=== PATIENT | male | born 1940 | race Caucasian/White ===

== ENCOUNTER 2016-05-12 09:43 | Emergency (ER) | payer MEDICARE, BC ==
[2013-08-28 06:58] VITALS: BMI 29.7
[~2016-05-12 09:43] MED LIST: ASPIRIN325 MG PO; IBUPROFEN800 MG PO; LIPITOR20 MG PO; OSTEO BI-FLEX1 EAC1 PO; PLAVIX75 MG PO; PRINIVIL10 MG PO; ZYRTEC10 MG PO
[2016-05-12 10:38] LABS: BASOPHILS 0.5 % (0.0-2.0); EOSINOPHILS 2.5 % (0-7); HEMATOCRIT 48.7 % (42.0-54.0); HEMOGLOBIN 16.1 g/dL (13.5-17.5); IMMATURE GRANULOCYTES 0.2 % (0-5); LYMPHOCYTES 18.4 % (15-50); MCH 30.8 pg (26.0-34.0); MCHC 33.1 g/dL (31.0-37.0); MCV 93.3 fL (80.0-100.0); MEAN PLATELET VOLUME 10.4 fL (7.4-10.4); MONOCYTES 7.6 % (2-11); NEUTROPHILS 70.8 % (40-80); PLATELET COUNT 214 10x3/uL (130-400); RBC 5.22 10x6/uL (4.20-6.10); RDW 13.1 % (11.5-14.5); WBC 6.4 10x3/uL (4.8-10.8)
[2016-05-12 10:57] LABS: ALBUMIN 3.6 g/dL (3.4-5.0); ALKALINE PHOSPHATASE 59 U/L (46-116); ALT (SGPT) 31 U/L (10-68); CALC OSMOLALITY 284 mosm/kg (275-300); CALCIUM 8.7 mg/dL (8.5-10.1); CARBON DIOXIDE 29.6 mmol/L (21.0-32.0); CHLORIDE - SERUM 104 mmol/L (98-107); GLUCOSE 128 mg/dL (74-106); POTASSIUM - SERUM 4.1 mmol/L (3.5-5.1); PROTEIN - SERUM 6.5 g/dL (6.4-8.2); SODIUM 141 mmol/L (136-145); UREA NITROGEN 18 mg/dL (7-18); eGFR NON AFRICAN AMERICAN 78 mL/min (90-120)
[2016-05-12 11:12] LABS: CKMB 0.5 U/L (0.0-3.6); CREATINE KINASE 41 UL (21-232); TROPONIN-I < 0.017 ng/mL (0.000-0.060)
== END 2016-05-12 12:12 | disposition home or self-care (01) ==
LOC: D.ER 09:43
PROVIDERS: Emergency Medicine; Nurse Practitioner Acute Care
DX: R55 Syncope and collapse (principal); I10 Essential (primary) hypertension; E78.5 Hyperlipidemia, unspecified; Z95.0 Presence of cardiac pacemaker

== ENCOUNTER 2017-03-18 16:17 | Emergency (ER) | payer MEDICARE, BC ==
[2013-08-28 06:58] VITALS: BMI 29.7
[2017-03-18 17:35] LABS: BASOPHILS 0.5 % (0-2); EOSINOPHILS 2.3 % (0-7); HEMATOCRIT 46.5 % (42.0-54.0); IMMATURE GRANULOCYTES 0.4 % (0-5); LYMPHOCYTES 17.7 % (15-50); MCH 30.9 pg (26.0-34.0); MCHC 34.4 g/dL (31.0-37.0); MCV 89.8 fL (80.0-100.0); MONOCYTES 9.5 % (2-11); NEUTROPHILS 69.6 % (40-80); PLATELET COUNT 229 10x3/uL (130-400); RBC 5.18 10x6/uL (4.20-6.10); RDW 13.8 % (11.5-14.5); WBC 7.4 10x3/uL (4.8-10.8)
[2017-03-18 18:05] LABS: ALBUMIN 3.7 g/dL (3.4-5.0); ALKALINE PHOSPHATASE 64 U/L (46-116); ALT (SGPT) 33 U/L (10-68); BILIRUBIN - TOTAL 0.58 mg/dL (0.2-1.3); CALC OSMOLALITY 286 mosm/kg (275-300); CALCIUM 9.1 mg/dL (8.5-10.1); CARBON DIOXIDE 29.4 mmol/L (21.0-32.0); CHLORIDE - SERUM 104 mmol/L (98-107); GLUCOSE 112 mg/dL (74-106); POTASSIUM - SERUM 3.8 mmol/L (3.5-5.1); PROTEIN - SERUM 6.8 g/dL (6.4-8.2); SODIUM 142 mmol/L (136-145); TROPONIN-I < 0.017 ng/mL (0.000-0.060); UREA NITROGEN 21 mg/dL (7-18); eGFR NON AFRICAN AMERICAN 78 mL/min (90-120)
[2017-04-04] MEDS ORDERED: BAYER CHEWABLE81 MG PO (09:28)
[2017-04-04] MEDS ORDERED: PLAVIX75 MG PO (09:28)
[2017-04-04] MEDS ORDERED: DIOVAN HCT 160/1 TAB PO (09:29)
[2017-04-04] MEDS ORDERED: NIFEDIPINE ER30 MG PO (09:30)
[2017-04-04] MEDS ORDERED: MULTIPLE VITAMI1 TA1 PO (09:30)
[2017-04-04 09:46] VITALS: BMI 29.7
== END 2017-03-18 20:16 | disposition home or self-care (01) ==
LOC: D.ER 16:17
PROVIDERS: Physician Assistant
DX: R42 Dizziness and giddiness (principal); I10 Essential (primary) hypertension; Z86.79 Personal history of other diseases of the circulatory system; Z95.0 Presence of cardiac pacemaker

== ENCOUNTER → 2017-04-04 08:45 | Outpatient (CLI) | payer MEDICARE, BC ==
[~2017-04-04] VITALS: Ht 185.4 cm; Wt 102.3 kg
--- NOTE | ~2017-04-04 | HEMODYNAMI ---
PATIENT:MALLORY YOUSIF MEDICAL RECORD: [id number] : 44 LOCATION:DNEVAEH ADMISSION DATE: 04/04/17 Generatedon:04/04/201711:47 Patient name: MALLORY YOUSIF Patient #: [id number] SSN: : 1940 Date of study: 04/04/2017 Page: Of Hemodynamic Procedure Report Patient Data Patient Demographics Procedure consent was obtained First Name: MALLORY Gender: Male Last Name: BENJA : 1940 Middle Initial: ANTONY Age: 76 year(s) Patient #: [id number] Race: Unknown Additional ID: [id number] Contact details Address: [address] [place] [address] State: [place] City: [place] Zip code: [address] Past Medical History Allergies: No known allergies Admission Admission Data Admission Date: 04/04/2017 Admission Time: 8:45 Height (in.): 26 BSA: 1.09 (m2) Height (cm.): 66.04 BMI: 243.37 (kg/m2) Weight (lbs.): 234 Weight (kg.): 106.14 Lab Results Lab Result Date: 04/04/2017 Lab Result Time: 0:00 Biochemistry Name Units Result Min Max BUN mg/dl 15 --(--*-)-- 7 18 Creatinine mg/dl 1 --(--*-)-- 0.6 1.3 CBC Name Units Result Min Max Hemoglobin g/dl 16.8 --(---*)-- 13.5 17.5 Procedure Procedure Types Cath Procedure Diagnostic Procedure LHC LHC w/Coronaries FFR/IVUS Intra-Coronary IVUS Initial PCI Procedure Coronary Stent Miscellaneous Procedures Moderate Sedation up to 15 minutes Procedure Description Procedure Date Procedure Date: 04/04/2017 Procedure Start Time: 11:29 Procedure End Time: 11:47 Procedure Staff Name Function Phoenix Allen MD Performing Physician Myah Juárez RT Monitor Sujey Vyas RT Scrub Kenna Nava RN Nurse Procedure Data Cath Procedure Fluoroscopy Diagnostic fluoroscopy Total fluoroscopy Time: 4.8 time: 4.8 min min Diagnostic fluoroscopy Total fluoroscopy dose: 741 dose: 741 mGy mGy Contrast Material Contrast Material Type Amount (ml) Isovue 300 111 Entry Location Entry Primary Successful Side Size Upsize Upsize Entry Closure Chawla ccessful Closure Location (Fr) 1 (Fr) 2 (Fr) Remarks Device Remarks Radial Right 6 Fr Mechanical artery Short Compression Estimated blood loss: 10 ml Diagnostic catheters Device Type Used For End Catheter Placement DIAGNOSTIC [place] 110cm 5 Procedure Fr catheter ([id number]) Procedure Complications No complications Procedure Medications Medication Administration Route Dosage Oxygen NC 2 l/min Lidocaine 2% added to field 20 Heparin Flush Bag added to field 2 bags (1000units/500ml NS) 0.9% NaCl I.V. 100 ml/hr Versed I.V. 1 mg Fentanyl I.V. 50 mcg Radial Cocktail I.A. 1 syringe (Verapomil 2mg/Nitro 400mcg/Heparin 1500units) Versed I.V. 1 mg Fentanyl I.V. 50 mcg Versed I.V. 1 mg Fentanyl I.V. 50 mcg Heparin Bolus I.V. 4000 units Hemodynamics Rest BSA: 1.09 (m2) HGB: 16.8 (g/dl) O2 Consumption: Estimated: 130.62 (ml/min) O2 Co nsumption indexed: Estimated:119.83 (ml/min/m) Heart Rate: 83 (bpm) Snapshots Pre Cath Intra NCS Post Cath Vital Signs Time Heart Resp SPO2 etCO2 NIBP (mmHg) Rhythm Pain Sedation Rate (ipm) (%) (mmHg) Status Level (bpm) 11:04:23 84 18 97 31.2 118/79(105) NSR 0 (11) 10(A) , No pain 11:09:02 81 15 96 0 127/77(98) NSR 0 (11) 10(A) , No pain 11:13:40 80 16 94 25.1 112/72(89) NSR 0 (11) 10(A) , No pain 11:18:19 79 16 95 30.5 111/73(89) NSR 0 (11) 10(A) , No pain 11:22:55 78 15 94 33.5 114/69(89) NSR 0 (11) 10(A) , No pain 11:27:32 79 15 95 9.1 114/75(92) NSR 0 (11) 9(A) , No pain 11:32:10 79 15 93 30.4 98/53(73) NSR 0 (11) 9(A) , No pain 11:36:47 75 13 94 12.1 110/62(82) NSR 0 (11) 9(A) , No pain 11:41:26 76 14 94 33.4 113/63(92) NSR 0 (11) 10(A) , No pain 11:46:04 75 12 94 34.2 105/60(80) NSR 0 (11) 10(A) , No pain Medications Time Medication Route Dose Verified Delivered Reason Note s Effectiveness by by 11:08:10 Oxygen NC 2 l/min Phoenix Buffie used for Tiffany Nava RN procedure 11:08:17 Lidocaine 2% added 20ml Phoenix Phoenix for local to vial Tiffany Allen MD anesthetic field 11:08:23 Heparin Flush added 2 bags Phoenix Phoenix used for Bag to Tiffany Allen MD procedure (1000units/500ml field NS) 11:08:48 0.9% NaCl I.V. 100 Phoenix Buffie Per physician ml/hr Tiffany Nava RN 11:23:39 Versed I.V. 1 mg Phoenix Buffie for sedation Tiffany Nava RN 11:23:48 Fentanyl I.V. 50 mcg Phoenix Buffie for sedation Tiffany Nava RN 11:30:26 Radial Cocktail I.A. 1 Phoenix Phoenix for (Verapomil syringe Tiffany Allen MD vasodilation 2mg/Nitro 400mcg/Heparin 1500units) 11:30:52 Versed I.V. 1 mg Phoenix Buffie for sedation Tiffany Nava RN 11:30:58 Fentanyl I.V. 50 mcg Phoenix Buffie for sedation Tiffany Nava RN 11:37:41 Versed I.V. 1 mg Phoenix Buffie for sedation Tiffany Nava RN 11:37:45 Fentanyl I.V. 50 mcg Phoenix Buffie for sedation Tiffany Nava RN 11:38:37 Heparin Bolus I.V. 4000 Phoenix Buffie for veri fied units Tiffany Nava RN anticoagulation with dr allen Procedure Log Time Note 10:46:01 Kenna Nava RN sent for patient. Start room use. 10:46:02 Time tracking: Regular hours 10:46:06 Plan of Care:Hemodynamics will remain stable., Cardiac rhythm will remain stable., Comfort level will be maintained., Respiratory function will remain adequate., Patient/ family verbilizes understanding of procedure., Procedure tolerated without complication., Recovers from procedure without complications.. 10:47:20 Signed procedure consent form obtained from patient. 10:47:30 H&P Date Dictated: 03/21/2017 Within 30 days and on chart., H&P Addendum completed by physician on day of procedure. (MUST COMPLETE FOR ALL OUTPATIENTS). 10:47:38 Patient Height : 26 inches 10:47:45 Patient Weight : 234 lbs 10:47:58 Patient allergic to No known allergies 10:49:18 Lab Result : BUN 15 mg/dl 10:49:18 Lab Result : Creatinine 1 mg/dl 10:49:18 Lab Result : Hemoglobin 16.8 g/dl 10:53:15 Patient received from Pre/Post Procedure Room to [facility] 1 Alert and oriented. Tansferred to table in Supine position. 10:53:16 Warm blankets applied, and rogelio hugger turned on for patient comfort. 10:53:17 Correct patient and procedure confirmed by team. 10:53:18 ECG and BP/O2 sat monitors applied to patient. 11:03:35 Vital chart was started 11:03:36 Baseline sample Acquired. 11:03:44 Rhythm: sinus rhythm 11:03:45 Full Disclosure recording started 11:03:46 Pre-procedure instructions explained to patient. 11:03:47 Pre-op teaching completed and patient verbalized understanding. 11:03:52 Family in patients room. 11:04:00 Is the patient allergic to Iodine/contrast media? No. 11:04:01 Is patient on blood thinner?Yes 11:04:04 ACC The patient was administered the following blood thiners within the last 24 hours: ACCPlavix 11:04:08 Patient diabetic? No. 11:04:12 Previous problem with sedation/anesthesia? No ? 11:04:12 Snore? Yes 11:04:13 Sleep apnea? No 11:04:15 Deviated septum? No 11:04:16 Opens mouth fully? Yes 11:04:17 Sticks out tongue? Yes 11:04:19 Airway obstruction? No ? 11:04:25 Dentures? No ? 11:05:22 Modified Jose's test Ulnar < 7 seconds 11:05:25 Patient pain scale 0/10 ?. 11:06:19 IV patent on arrival in left forearm with 0.9% NaCl at [facility]. 11:06:22 Lab results completed and on chart. 11:06:25 Right Radial & Right Groin area was prepped with chlora-prep and draped in sterile fashion 11:06:26 Alarms reviewed by R. N. 11:06:27 Sharps counted by scrub and verified by R.N. 11:07:09 Use device set Radial Dx or PCI 11:07:11 ACIST Syringe (99274) opened to sterile field. 11:07:11 Medline Cath Pack ([id number]) opened to sterile field. 11:07:13 ACIST Manifold (39389) opened to sterile field. 11:07:13 ACIST Hand Control (89825) opened to sterile field. 11:07:14 Tegaderm 4 x 4 (1626W) opened to sterile field. 11:07:16 Bag Decanter (2002S) opened to sterile field. 11:07:17 SHEATH 6FR Slender ([id number]) opened to sterile field. 11:07:17 DIAGNOSTIC WIRE .035 260cm J wire (908310) opened to sterile field. 11:07:18 MBrace Wrist Support ([id number]) opened to sterile field. 11:08:10 Oxygen 2 l/min NC was administered by Kenna Nava RN; used for procedure; 11:08:17 Lidocaine 2% 20ml vial added to field was administered by Phoenix Allen MD; for local anesthetic; 11:08:23 Heparin Flush Bag (1000units/500ml NS) 2 bags added to field was administered by Phoenix Allen MD; used for procedure; 11:08:48 0.9% NaCl 100 ml/hr I.V. was administered by Kenna Nava RN; Per physician; 11:11:19 Zero performed for pressure channel P1 11:22:18 --------ALL STOP TIME OUT------ 11::18 Final Timeout: patient, procedure, and site verified with staff and physician. All members of the team are in agreement. 11:22:20 Right Radial & Right Groin site verified by team. 11::23 Physical assessment completed. ASA score P 2 - A patient with mild systemic disease as per Phoenix Allen MD. 11::26 Sedation plan: IV Moderate Sedation Medication:Versed, Fentanyl 11:23:39 Versed 1 mg I.V. was administered by Kenna Nava RN; for sedation; 11::48 Fentanyl 50 mcg I.V. was administered by Kenna Nava RN; for sedation; 11:29:19 Procedure started. 11:29:28 Local anesthetic to right radial artery with Lidocaine 2% by Phoenix Allen MD.INITIAL ACCESS ONLY 11:30:04 A 6 Fr Short sheath was inserted into the Right Radial artery 11:30:14 A DIAGNOSTIC [place] 110cm 5 Fr catheter (266329) was advanced over the wire and used for Procedure. 11:30:26 Radial Cocktail (Verapomil 2mg/Nitro 400mcg/Heparin 1500units) 1 syringe I.A. was administered by Phoenix Allen MD; for vasodilation; 11:30:52 Versed 1 mg I.V. was administered by Kenna Nava RN; for sedation; 11:30:58 Fentanyl 50 mcg I.V. was administered by Kenna Nava RN; for sedation; 11:32:07 LV gram done using RICKS 11:32:11 Injector settings: Ml/sec: 7, Volume: 15, 11:32:49 EF : 60 % 11:33:06 LCA angiography performed. 11:33:52 INFLATOR Merit BasixCompak (QI0886) opened to sterile field. 11:34:10 RCA angiography performed. 11:34:15 Catheter removed. 11:34:21 Mari[place] Eagleye IVUS Catheter (50412P) opened to sterile field. 11:34:31 CHOICE PT Extra Support 182cm wire ([id number]) opened to sterile field. 11:35:14 GUIDE 6FR XBLAD 3.5 catheter ([id number]) opened to sterile field. 11:35:28 6 Fr XBLAD 3.5 guide catheter was inserted over the wire 11:35:34 CHOICE PT wire advanced. 11:36:13 Wire advanced across lesion. 11:36:37 IVUS catheter advanced over wire. 11:37:41 Versed 1 mg I.V. was administered by Kenna Nava RN; for sedation; 11:37:45 Fentanyl 50 mcg I.V. was administered by Kenna Nava RN; for sedation; 11:38:19 IVUS pass to LAD lesion performed. 11:38:20 IVUS catheter removed over wire. 11:38:37 Heparin Bolus 4000 units I.V. was administered by Kenna Nava RN; for anticoagulation; verified with dr allen 11:40:19 Inflation Number: 1 A INTEGRITY RX 3.0 x 15 stent ([id number]) was prepped and advanced across the Mid LAD. The stent was deployed at 15 FARHANA for 0:10 (min:sec). 11:40:50 Stent catheter was removed intact over wire. 11:40:51 Wire removed. 11:40:53 Guide catheter removed. 11:40:58 TR BAND Large ([id number]) opened to sterile field. 11:41:36 Sheath removed intact; hemostasis achieved with Mechanical Compression to the Right Radial artery. 11:41:38 Procedure ended.(Physican Out) 11:42:11 Fluoroscopy time 04.80 minutes. 11:42:15 Flurop Dose total: 741 11:42:15 Fluoroscopy dose: 741 mGy 11:42:18 Contrast amount:Isovue 300 111ml. 11:42:20 Sharps counted by scrub and verified by R.N. 11:42:22 TR band inflated with 10cc of air. 11:42:59 Post-procedure physical assessment completed. ASA score P 2 - A patient with mild systemic disease as per Phoenix Allen MD. 11:43:01 Post procedure rhythm: unchanged. 11:43:03 Estimated blood loss: 10 ml 11:43:29 Post procedure instruction explained to patient.Patient verbalizes understanding. 11:43:29 Patient needs reinforcement of post procedure teaching. 11:43:39 Procedure type changed to Cath procedure, Diagnostic procedure, LHC, C w/Coronaries, FFR/IVUS, Intra-Coronary IVUS Initial, PCI procedure, Coronary Stent, Miscellaneous Procedures, Moderate Sedation up to 15 minutes 11:44:44 Procedure and supply charges have been captured, reviewed, submitted and are correct. 11:44:47 Procedure Complication : No complications 11:46:46 Vital chart was stopped 11:46:46 See physician's report for complete and final results. 11:46:50 Report given to Pre/Post Procedure Room. 11:46:58 Patient transfered to Pre/Post Procedure Room with Bed. 11:47:04 Procedure ended. 11:47:04 Full Disclosure recording stopped 11:47:21 End room use (Document Last) Intervention Summary Intervention Notes Time ActionType Lesion and Equipment Action# Pressure Duration Attributes Used 11:40:19 Place stent Mid LAD INTEGRITY RX 1 15 00:10 3.0 x 15 stent ([id number]) Device Usage Item Name Manufacture Quantity Catalog Number Hospital Part Current Mini mal Lot# / Charge Number Stock Stock Serial# Code ACIST Acist 1 15154 102794 569203 [id number] 20 Syringe Medical (21321) Systems Inc Medline Cath Cardinal 1 [id number] 662297 03161 464965 5 Pack Health ([id number]) ACIST Acist 1 40638 730470 085152 357519 5 Manifold Medical (79748) Systems Inc ACIST Hand Acist 1 93767 949633 815271 451881 5 Control Medical (73421) Systems Inc Tegaderm 4 x 3M 1 1626W 173697 672554 495746 5 4 (1626W) Bag Decanter Microtek 1 2002S 464018 57672 241450 5 (2001S) Medical Inc. SHEATH 6FR Terumo 1 [id number] 454305 743959 273540 40 Slender ([id number]) DIAGNOSTIC [place] 1 487229 553562 926312 945618 30 WIRE .035 260cm J wire (192421) MBrace Wrist Advanced 1 140-0250-00 559524 01912 437445 5 Support Vascular ([id number]) Dynamics DIAGNOSTIC Terumo 1 40-5013 079892 488875 093787 5 [place] 110cm 5 Fr catheter (016808) INFLATOR Merit 1 [id number] 312042 498831 840413 15 [facility] Medical BasixCompak (EU1824) Marietta [place] 1 06549O 617234 372233 683620 8 [place] Eagleye IVUS Catheter (45907F) CHOICE PT [place] 1 [id number] 710439 322390 103116 5 Extra Scientific Support 182cm wire ([id number]) GUIDE 6FR Cardinal 1 [id number] 470709 708303 027513 10 XBLAD 3.5 Health catheter (99264164) INTEGRITY RX Medtronic 1 [id number] 858889 748055 553783 5 [id number] 3.0 x 15 stent ([id number]) TR BAND Terumo 1 [id number] 867432 350669 655930 40 Large (IVB00IYS) Signature Audit [place] Stage Time Signature Unsigned Intra-Procedure 04/04/2017 Myah Juárez 11:47:34 AM RT(R) Signatures Monitor : Myah Juárez Signature : RT Date : Time : [address] [address]
--- NOTE | ~2017-04-04 | OP ---
PATIENT NAME: MALLORY YOUSIF MEDICAL RECORD: [id number] :44 LOCATION:D.CAT ADMISSION DATE: SURGEON: KENNEY SIM MD DATE OF OPERATION: 04/04/2017 PROCEDURES: 1. PTCA stent LAD. 2. Intravascular ultrasound of the LAD. 3. Left heart catheterization. 4. Selective coronary angiography. 5. Left ventriculogram. INDICATION: Angina and coronary artery disease. PROCEDURE IN DETAIL: After informed consent was obtained and after detailed explanation of risks, benefits as well as alternative therapies, the patient elected to proceed with angiogram and angioplasty. The right radial area was prepped and draped in normal sterile fashion. The right radial artery was cannulated via modified Seldinger technique with placement of a 6-Welsh sheath. All catheters exchanged through this sheath. FINDINGS: Left ventriculogram was performed in standard 30-degree RICKS view, reveals good cardiac wall motion throughout all segments. Overall ejection fraction estimated at 60%. SELECTIVE CORONARY ANGIOGRAPHY: 1. Left main showed no significant angiographic disease. 2. Left anterior descending has greater than 70% stenosis in the mid vessel confirmed by intravascular ultrasound. 3. Left circumflex has mild irregularities, but no flow-limiting stenosis. 4. Right coronary has mild irregularities, but no flow-limiting stenosis. PTCA STENT OF THE LAD: The stent used is a 3.0 x 15 mm Integrity. Result was 0% residual stenosis. OVERALL IMPRESSION: Successful percutaneous transluminal coronary angioplasty stent of the left anterior descending going from greater than 70% initial stenosis to 0% residual. TRANSINT:[id number] Voice Confirmation ID: [id number] DOCUMENT ID: [id number] KENNEY SIM MD CC: [id number] DICTATION DATE: 04/04/17 114 SUPERVISOR MACHINE SETTER: 04/04/171927 [facility] [address] [place] [address]
[~2017-04-04 08:45] MED LIST changes: +BAYER CHEWABLE81 MG PO; +DIOVAN HCT 160/1 TAB PO; +MULTIPLE VITAMI1 TA1 PO; +NIFEDIPINE ER30 MG PO
[2017-04-04 09:46] VITALS: BP 132/75; Ht 185.4 cm; Wt 102.3 kg
[2017-04-04 09:52] LABS: BASOPHILS 0.4 % (0-2); EOSINOPHILS 2.6 % (0-7); HEMATOCRIT 49.2 % (42.0-54.0); HEMOGLOBIN 16.8 g/dL (13.5-17.5); IMMATURE GRANULOCYTES 0.1 % (0-5); LYMPHOCYTES 9.1 % (15-50); MCH 30.7 pg (26.0-34.0); MCHC 34.1 g/dL (31.0-37.0); MCV 89.8 fL (80.0-100.0); MEAN PLATELET VOLUME 9.7 fL (7.4-10.4); MONOCYTES 11.1 % (2-11); NEUTROPHILS 76.7 % (40-80); PLATELET COUNT 223 10x3/uL (130-400); RBC 5.48 10x6/uL (4.20-6.10); RDW 13.3 % (11.5-14.5); WBC 7.7 10x3/uL (4.8-10.8)
[2017-04-04 10:01] LABS: CALC OSMOLALITY 279 mosm/kg (275-300); CALCIUM 8.3 mg/dL (8.5-10.1); CARBON DIOXIDE 28.2 mmol/L (21.0-32.0); CHLORIDE - SERUM 102 mmol/L (98-107); GLUCOSE 120 mg/dL (74-106); POTASSIUM - SERUM 3.9 mmol/L (3.5-5.1); SODIUM 139 mmol/L (136-145); UREA NITROGEN 15 mg/dL (7-18); eGFR NON AFRICAN AMERICAN 78 mL/min (90-120)
== END | disposition home or self-care (01) ==
LOC: D.CATH 08:45
PROVIDERS: Internal Medicine Interventional Cardiology
DX: I25.10 Atherosclerotic heart disease of native coronary artery without angina pectoris (principal); I49.5 Sick sinus syndrome; Z95.0 Presence of cardiac pacemaker; I10 Essential (primary) hypertension; Z01.812 Encounter for preprocedural laboratory examination

== ENCOUNTER 2019-02-23 07:46 | Emergency (ER) | payer MEDICARE, BC ==
[~2019-02-23] VITALS: Ht 185.4 cm; Wt 102.3 kg
[2019-02-23] MEDS ORDERED: GLUCOSAMINE HC500 MG PO (07:56)
[2019-02-23] MEDS ORDERED: VITAMIN D31000 UNIT PO (07:56)
[2019-02-23] MEDS ORDERED: FISH OIL 1,0001 CA1 PO (07:56)
[2019-02-23 08:08] LABS: BASOPHILS 0.5 % (0-2); EOSINOPHILS 2.8 % (0-7); HEMATOCRIT 49.5 % (42.0-54.0); IMMATURE GRANULOCYTES 0.4 % (0-5); LYMPHOCYTES 22.5 % (15-50); MCHC 34.3 g/dL (31.0-37.0); MCV 90.2 fL (80.0-100.0); MEAN PLATELET VOLUME 9.7 fL (7.4-10.4); MONOCYTES 7.6 % (2-11); NEUTROPHILS 66.2 % (40-80); PLATELET COUNT 242 10x3/uL (130-400); RBC 5.49 10x6/uL (4.20-6.10); RDW 13.5 % (11.5-14.5); WBC 8.2 10x3/uL (4.8-10.8)
[2019-02-23 08:16] LABS: INR 1.04 (0.85-1.17); PROTIME 13.1 SECONDS (11.6-15.0)
[2019-02-23 08:17] LABS: APTT 23.9 SECONDS (22.8-39.4); CALC OSMOLALITY 281 mosm/kg (275-300); CALCIUM 8.9 mg/dL (8.5-10.1); CARBON DIOXIDE 26.8 mmol/L (21.0-32.0); CHLORIDE - SERUM 103 mmol/L (98-107); CREATININE - SERUM 1.1 mg/dL (0.6-1.3); GLUCOSE 125 mg/dL (74-106); POTASSIUM - SERUM 4.1 mmol/L (3.5-5.1); SODIUM 141 mmol/L (136-145); UREA NITROGEN 13 mg/dL (7-18); eGFR NON AFRICAN AMERICAN 69 mL/min (90-120)
[2019-02-23 08:33] LABS: ALBUMIN 3.9 g/dL (3.4-5.0); ALKALINE PHOSPHATASE 78 U/L (46-116); ALT (SGPT) 50 U/L (10-68); BILIRUBIN - TOTAL 1.22 mg/dL (0.2-1.3); CKMB 0.7 U/L (0.0-3.6); CREATINE KINASE 74 UL (21-232); PROTEIN - SERUM 7.2 g/dL (6.4-8.2); TROPONIN-I < 0.017 ng/mL (0.000-0.060)
[2019-02-23 10:07] VITALS: Ht 185.4 cm; Wt 102.3 kg
[2019-02-23 10:47] VITALS: BP 129/73
--- NOTE | 2019-02-26 11:13 | CN ---
PATIENT NAME:MALLORY CHARLES MEDICAL RECORD: [id number] : 44 LOCATION:D.ER ADMIT DATE: ACCOUNT: [id number] CONSULTING PHYSICIAN: KENNEY SIM MD REFERRING PHYSICIAN: TENISHA NEVAREZ MD DATE OF CONSULTATION: 02/23/2019 CARDIOLOGY CONSULTATION ADMITTING DIAGNOSES: 1. Chest pain. 2. Coronary artery disease. 3. Previous percutaneous transluminal coronary angioplasty stent. 4. Hypertension. 5. Hyperlipidemia. HISTORY OF PRESENT ILLNESS: Mr. Charles yesterday while carrying a heavy crock pot for a distance had an episode of chest pain, it was very short lived. Today, he presents to the Emergency Room because his blood pressure remained high blood. His blood pressure was high yesterday after the chest pain. He had no further chest pain. No shortness of breath and no cardiac symptomatology. His blood pressure remained high. He took an extra valsartan, now his blood pressure is in the 119 area. He is pain free. His troponin is normal. PHYSICAL EXAMINATION: CONSTITUTIONAL/GENERAL APPEARANCE: Well nourished, well developed, appears stated age. EYES: Lids and conjunctivae noninjected. No discharge. No pallor. ENT: Lips within normal limit. No cyanosis. No pallor. NECK: Carotid arteries, bilateral normal upstroke. No bruits. No thrills. No jugular venous pressure or distention. CERVICAL LYMPH NODES: Nontender. Nonenlarged. THYROID: Not enlarged. No nodules. CARDIOVASCULAR: Precordial exam, nondisplaced. No heaves or pericardial thrills. Rate and rhythm, regular. Heart sounds, normal S1, normal S2. No S3, no gallop, no rub. Systolic murmur, not heard. Diastolic murmur, not heard. RESPIRATORY: Respiratory effort, unlabored. Normal curvature. No thoracic deformity. No chest wall tenderness. Percussion, resonant. Auscultation, clear. No wheezes, no rales, no rhonchi. ABDOMEN: Soft, nondistended, nontender. No abdominal pain, no vomiting and normal appetite. MUSCULOSKELETAL: No joint tenderness, normal gait, normal tone. SKIN: Warm and dry. OVERALL IMPRESSION: One episode of chest pain yesterday, no EKG changes, normal troponin. At this time, we will discharge from the Emergency Room, but set him for stress testing Cardiolite imaging as an outpatient. TRANSINT:[id number] Voice Confirmation ID: [id number] DOCUMENT ID: [id number] CONSULT REPORT [id number] MALLORY CHARLES, KENNEY MARK at 1113 CC: [id number] DICTATION DATE: 02/23/19 1009 [employer]AS [employer] SUPERVISOR: 02/23/19 1257 DEP ER 02/23/19 [place] [id number]
== END 2019-02-23 10:47 | disposition home or self-care (01) ==
LOC: D.ER 07:46
PROVIDERS: Family Medicine
DX: R07.9 Chest pain, unspecified (principal); I25.10 Atherosclerotic heart disease of native coronary artery without angina pectoris; I10 Essential (primary) hypertension; Z95.0 Presence of cardiac pacemaker

== ENCOUNTER 2019-02-26 07:55 | Inpatient (IN) | payer MEDICARE, BC ==
[~2019-02-26] VITALS: Ht 182.9 cm; Wt 102.6 kg
--- NOTE | ~2019-02-26 | OP ---
PATIENT NAME: MALLORY YOUSIF MEDICAL RECORD: [id number] :44 LOCATION:D.M2 D.2119 ADMISSION DATE: SURGEON: KENNEY SIM MD DATE OF OPERATION: 02/26/2019 PROCEDURES: 1. PTCA stent LAD. 2. IFR LAD. 3. IFR RCA. 4. Left heart catheterization. 5. Selective coronary angiography. 6. Left ventriculogram. INDICATION: Unstable angina and coronary artery disease. PROCEDURE IN DETAIL: After informed consent was obtained and after a detailed description of the risks, benefits as well as alternative therapies, the patient elected to proceed with angiogram and angioplasty. The right radial area was prepped and draped in normal sterile fashion. Right radial artery was cannulated via modified Seldinger technique with placement of 6-Danish sheath. All catheters exchanged through this sheath. FINDINGS: Left ventriculogram was performed in standard 30-degree RICKS view, reveals good cardiac wall motion, ejection fraction estimated 60%. SELECTIVE CORONARY ANGIOGRAPHY: 1. Left main is with no significant angiographic disease. 2. Left anterior descending has previously placed stent with 70% in-stent restenosis and IFR is abnormal. 3. Left circumflex has moderate irregularities, but no flow-limiting stenosis. 4. Right coronary has moderate irregularities, questionable stenosis in the PLV but IFR is normal. PTCA STENT OF THE LAD: The stent used was a 3.0 x 22 mm [place]. Result was 0% residual stenosis. OVERALL IMPRESSION: Successful percutaneous transluminal coronary angioplasty stent of the left anterior descending going from 70% initial stenosis to 0% residual. TRANSINT:[id number] Voice Confirmation ID: [id number] DOCUMENT ID: [id number] KENNEY SIM MD CC: [id number] DICTATION DATE: 02/26/19 1158 MOP HANDLE ASSEMBLER: 02/26/19 1620 REG [facility] [address] [place] [address]
--- NOTE | ~2019-02-26 | CN ---
PATIENT NAME:MALLORY CHARLES MEDICAL RECORD: [id number] : 44 LOCATION:D.CAT ADMIT DATE: ACCOUNT: [id number] CONSULTING PHYSICIAN: KENNEY SIM MD REFERRING PHYSICIAN: KENNEY SIM MD DATE OF CONSULTATION: 02/26/2019 DIAGNOSES: 1. Unstable angina. 2. Coronary artery disease. 3. Previous percutaneous transluminal coronary angioplasty stent. 4. Shortness of breath, dyspnea on exertion. 5. Hypertension. 6. Hyperlipidemia. HISTORY OF PRESENT ILLNESS: Mr. Charles had significant chest pain last with exertion. He presented in the Emergency Room Tuesday. I set him for a stress test tomorrow. He has had recurrent episodes of chest pressure and palpitations throughout the weekend. His shortness of breath and chest pressure worsened again this morning. He represents to the Emergency Room. His systolic blood pressure at home was in the 180s, here it is in the 120s; however, he still has the chest pressure, it is just like that of his previous angina. Last cardiac intervention was approximately 2 years ago. PHYSICAL EXAMINATION: CONSTITUTIONAL/GENERAL APPEARANCE: Well nourished, well developed, appears stated age. EYES: Lids and conjunctivae noninjected. No discharge. No pallor. ENT: Lips within normal limit. No cyanosis. No pallor. NECK: Carotid arteries, bilateral normal upstroke. No bruits. No thrills. No jugular venous pressure or distention. CERVICAL LYMPH NODES: Nontender. Nonenlarged. THYROID: Not enlarged. No nodules. CARDIOVASCULAR: Precordial exam, nondisplaced. No heaves or pericardial thrills. Rate and rhythm, regular. Heart sounds, normal S1, normal S2. No S3, no gallop, no rub. Systolic murmur, not heard. Diastolic murmur, not heard. RESPIRATORY: Respiratory effort, unlabored. Normal curvature. No thoracic deformity. No chest wall tenderness. Percussion, resonant. Auscultation, clear. No wheezes, no rales, no rhonchi. ABDOMEN: Soft, nondistended, nontender. No abdominal pain, no vomiting and normal appetite. MUSCULOSKELETAL: No joint tenderness, normal gait, normal tone. SKIN: Warm and dry. OVERALL IMPRESSION: Recurrent chest pressure in a patient with hypertension, hyperlipidemia, family history of premature coronary artery disease and coronary artery disease and [place] with previous stenting. We will proceed with repeat coronary angiography due to progression of symptomatology. Further care depends upon the findings of the angiography. TRANSINT:[id number] Voice Confirmation ID: [id number] DOCUMENT ID: [id number] CONSULT REPORT [id number] MALLORY CHARLES JEFFREY MD CC: [id number] DICTATION DATE: 02/26/1959 ACUTE CARE NURSING ASSISTANT: 02/26/19 1442 REG [facility] [address] [id number]
--- NOTE | ~2019-02-26 | HEMODYNAMI ---
PATIENT:MALLORY YOUSIF MEDICAL RECORD: [id number] : 44 LOCATION:[facility] ADMISSION DATE: 02/26/19 Generatedon:02/26/201912:00 Patient name: MALLORY YOUSIF Patient #: [id number] SSN: : 1940 Date of study: 02/26/2019 Page: Of Hemodynamic Procedure Report Patient Data Patient Demographics Procedure consent was obtained First Name: MALLORY Gender: Male Last Name: BENJA : 1940 [facility] Initial: ANTONY Age: 78 year(s) Patient #: [id number] Race: Unknown Additional ID: [id number] Contact details Address: [address] [place] [address] State: [place] City: [place] Zip code: [address] Past Medical History History of disease Date Diagnosis Comments CAD Allergies: No known allergies Admission Admission Data Admission Date: 02/26/2019 Admission Time: 7:55 Arrival Date: 02/26/2019 Arrival Time: 0:00 Admit Source: Emergency department Height (in.): 72.83 BSA: 2.26 (m2) Height (cm.): 185 BMI: 29.8 (kg/m2) Weight (lbs.): 224.87 Weight (kg.): 102 Lab Results Lab Result Date: 02/26/2019 Lab Result Time: 0:00 Biochemistry Name Units Result Min Max BUN mg/dl 11 --(-*--)-- 7 18 Creatinine mg/dl 1 --(--*-)-- 0.6 1.3 eGFR ml/min 76.91796 *-(----)-- 90 120 NONAFRICAN CBC Name Units Result Min Max Hematocrit % 47.2 --(-*--)-- 42 54 Hemoglobin g/dl 16 --(--*-)-- 13.5 17.5 Procedure Procedure Types Cath Procedure Diagnostic Procedure LHC LHC w/Coronaries FFR/IVUS FFR Initial FFR Additional Sedation Charges Moderate Sedation up to 15 minutes PCI Procedure Coronary Stent Coronary Stent Initial Hemochron ACT Test Procedure Description Procedure Date Procedure Date: 02/26/2019 Procedure Start Time: 11:35 Procedure End Time: 11:57 Procedure Staff Name Function Phoenix Allen MD Performing Physician Kwame Saavedra RT Monitor Deann Ruth RT Scrub Clare James RN Nurse Indication CAD Procedure Data Cath Procedure Fluoroscopy Diagnostic fluoroscopy Total fluoroscopy Time: 6.1 time: 6.1 min min Diagnostic fluoroscopy Total fluoroscopy dose: 420 dose: 420 mGy mGy Contrast Material Contrast Material Type Amount (ml) Isovue 300 127 Entry Location Entry Primary Successful Side Size Upsize Upsize Entry Closure Chawla ccessful Closure Location (Fr) 1 (Fr) 2 (Fr) Remarks Device Remarks Femoral Right 6 Fr Mechanical artery Short Compression Estimated blood loss: 10 ml Diagnostic catheters Device Type Used For End Catheter Placement DIAGNOSTIC [place] 110cm 5 Procedure Fr catheter ([id number]) Procedure Complications No complications Procedure Medications Medication Administration Route Dosage 0.9% NaCl I.V. 100 ml/hr Oxygen etCO2 Nasal cannula 2 l/min Lidocaine 2% added to field 20 Heparin Flush Bag added to field 2 bags (1000units/500ml NS) Radial Cocktail added to field 1 syringe (Verapamil 2mg/Nitro 400mcg/Heparin 1500units) Versed I.V. 2 mg Fentanyl I.V. 50 mcg Versed I.V. 2 mg Fentanyl I.V. 50 mcg Benadryl I.V. 50 mg Heparin Bolus I.V. 4000 units Integrilin (Bolus I.V. 9.5 ml 2mg/ml) Integrilin (Bolus wasted 0.5 ml 2mg/ml) Plavix P.O. 600 mg Hemodynamics Rest BSA: 2.26 (m2) HGB: 16 (g/dl) O2 Consumption: Estimated: 263.67 (ml/min) O2 Cons umption indexed: Estimated:116.67 (ml/min/m) Heart Rate: 75 (bpm) Snapshots Pre Cath Intra NCS Post Cath Vital Signs Time Heart Resp SPO2 etCO2 NIBP (mmHg) Rhythm Pain Sedation Rate (ipm) (%) (mmHg) Status Level (bpm) 11:01:55 75 20 96 3.7 137/79(110) Paced 0 (11) 10(A) , No pain 11:06:16 75 19 97 30.1 119/74(95) Paced 0 (11) 10(A) , No pain 11:10:27 74 18 96 33.1 127/76(95) Paced 0 (11) 10(A) , No pain 11:14:45 72 17 95 12 128/65(95) Paced 0 (11) 10(A) , No pain 11:19:04 71 14 96 11.2 115/66(85) Paced 0 (11) 10(A) , No pain 11:23:18 71 15 95 26.3 129/65(95) Paced 0 (11) 10(A) , No pain 11:27:34 72 10 96 23.3 117/64(88) Paced 0 (11) 10(A) , No pain 11:31:43 72 15 96 29.3 119/67(89) Paced 0 (11) 10(A) , No pain 11:35:55 75 19 96 16 120/72(86) Paced 0 (11) 10(A) , No pain 11:40:11 72 18 95 14.3 111/63(75) Paced 0 (11) 9(A) , No pain 11:44:23 71 19 96 13 106/61(82) Paced 0 (11) 9(A) , No pain 11:48:35 72 17 96 16.5 105/59(76) Paced 0 (11) 9(A) , No pain 11:52:47 74 17 96 15.8 108/59(77) Paced 0 (11) 10(A) , No pain 11:56:57 74 18 96 21 112/65(84) Paced 0 (11) 10(A) , No pain Medications Time Medication Route Dose Verified Delivered Reason Not es Effectiveness by by 11:00:55 0.9% NaCl I.V. 100 Phoenix Clare used for ml/hr Tiffany James replenishment associate 11:01:04 Oxygen etCO2 2 l/min Phoenix Oliveraa used for Nasal Tiffany James procedure cannula RN 11:01:10 Lidocaine 2% added 20ml Phoenix Garibay for local to vial Tiffany Allen MD anesthetic field 11:01:15 Heparin Flush added 2 bags Phoenix Garibay used for Bag to Tiffany Allen MD procedure (1000units/500ml field NS) 11:01:22 Radial Cocktail added 1 Phoenix Garibay used for (Verapamil to syringe Tiffany Allen MD procedure 2mg/Nitro field 400mcg/Heparin 1500units) 11:02:37 Benadryl I.V. 50 mg Phoenix Clare used for Tiffany James replenishment associate 11:32:05 Versed I.V. 2 mg Phoenix Clare for sedation Tiffany James RN 11:32:10 Fentanyl I.V. 50 mcg Phoenix Clare for sedation Tiffany James RN 11:36:41 Versed I.V. 2 mg Phoenix Clare for sedation Tiffany James RN 11:36:45 Fentanyl I.V. 50 mcg Phoenix Clare for sedation Tiffany James RN 11:45:39 Heparin Bolus I.V. 4000 Phoenix Clare for yaz ified units Tiffany James anticoagulation with Dr. DANG Allen 11:45:54 Integrilin I.V. 9.5 ml Phoenix Clare for (Bolus 2mg/ml) Tiffany James antiplatelet RN therapy 11:46:06 Integrilin wasted 0.5 ml Phoenix Clare for (Bolus 2mg/ml) Tiffany James antiplatelet RN therapy 11:46:15 Plavix P.O. 600 mg Phoenix Clare for Tiffany James antiplatelet RN therapy Procedure Log Time Note 10:26:40 Kwame Saavedra RT(R) sent for patient. Start room use. 10:26:41 Time tracking: Regular hours (M-F 7:00 - 5:00) 10:26:45 Plan of Care:Hemodynamics will remain stable., Cardiac rhythm will remain stable., Comfort level will be maintained., Respiratory function will remain adequate., Patient/ family verbilizes understanding of procedure., Procedure tolerated without complication., Recovers from procedure without complications.. 10:37:59 Procedure Status Urgent Heart Cath (IP). 10:39:05 H&P Date Dictated: 02/26/2019 New H&P dictated by physician.. 10:39:12 Patient allergic to No known allergies 10:39:53 Lab Result : BUN 11 mg/dl 10:39:53 Lab Result : Creatinine 1 mg/dl 10:39:53 Lab Result : eGFR NONAFRICAN 76.17544 ml/min 10:39:53 Lab Result : Hemoglobin 16 g/dl 10:39:53 Lab Result : Hematocrit 47.2 % 10:40:04 Stress Test: no; N/A ? 10:42:26 Risk of Mortality: .1 10:42:28 Risk of blood transfusion: .1 10:42:31 Risk of CHELY: .2 10:42:39 Informed consent obtained and on chart 10:43:09 Patient Weight : 224.87 lbs 10:43:12 Patient Height : 72.83 inches 10:43:18 Arrival Date: 02/26/2019 12:00:00 AM 10:43:21 Admit Source: Emergency department 10:44:59 Indication : CAD 10:45:13 ACC Patient presents with Stable Angina CCS Anginal Class 3--Marked limitation of physical activity, angina occurs with ordinary activity.. 10:55:10 Patient received from ED to CCL 3 Alert and oriented. Tansferred to table in Supine position. 10:55:11 Warm blankets applied, and rogelio hugger turned on for patient comfort. 10:55:12 Correct patient and procedure confirmed by team. 10:55:12 ECG and BP/O2 sat monitors applied to patient. 11:00:47 Vital chart was started 11:00:55 0.9% NaCl 100 ml/hr I.V. was administered by Clare James RN; used for procedure; Verbal order read back and verified. 11:01:04 Oxygen 2 l/min etCO2 Nasal cannula was administered by Clare James RN; used for procedure; Verbal order read back and verified. 11:01:10 Lidocaine 2% 20ml vial added to field was administered by Phoenix Allen MD; for local anesthetic; Verbal order read back and verified. 11:01:15 Heparin Flush Bag (1000units/500ml NS) 2 bags added to field was administered by Phoenix Allen MD; used for procedure; Verbal order read back and verified. 11:01:22 Radial Cocktail (Verapamil 2mg/Nitro 400mcg/Heparin 1500units) 1 syringe added to field was administered by Phoenix Allen MD; used for procedure; Verbal order read back and verified. 11:01:58 Baseline sample Acquired. 11:02:01 Rhythm: sinus rhythm 11:02:02 Full Disclosure recording started 11:02:03 Pre-procedure instructions explained to patient. 11:02:04 Pre-op teaching completed and patient verbalized understanding. 11:02:08 Family in patients room. 11:02:11 Patient NPO since Midnight. 11:02:13 Is the patient allergic to Iodine/contrast media? No. 11:02:20 Is patient on blood thinner?No 11:02:22 ACC The patient was administered the following blood thiners within the last 24 hours: None 11:02:24 Patient diabetic? No. 11:02:27 Previous problem with sedation/anesthesia? No ? 11:02:28 Snore? Yes 11:02:29 Sleep apnea? No 11:02:29 Deviated septum? No 11:02:30 Opens mouth fully? Yes 11:02:31 Sticks out tongue? Yes 11:02:33 Airway obstruction? No ? 11:02:35 Dentures? No ? 11:02:37 Benadryl 50 mg I.V. was administered by Clare James RN; used for procedure; Verbal order read back and verified. 11:02:38 Pre procedure: right dorsailis pedis pulse 1+ Palpable, but thready & weak; easily obliterated 11:02:39 Modified Jose's test Ulnar > 7 seconds. 11:02:42 Patient pain scale 0/10 ?. 11:02:45 Lab results completed and on chart. 11:02:52 Right Radial & Right Groin area was prepped with chlora-prep and draped in sterile fashion 11:02:53 Alarms reviewed by R. N. 11:02:54 Sharps counted by scrub and verified by R.N. 11:02:57 Use device set Radial Dx or PCI 11:02:59 Tegaderm 4 x 4 (1626W) opened to sterile field. 11:03:00 ACIST Manifold (90507) opened to sterile field. 11:03:01 Bag Decanter (2002S) opened to sterile field. 11:03:01 ACIST Hand Control (61484) opened to sterile field. 11:03:01 Medline Cath Pack ([id number]) opened to sterile field. 11:03:02 ACIST Syringe (90090) opened to sterile field. 11:03:04 MBrace Wrist Support ([id number]) opened to sterile field. 11:03:05 EMERALD Guide Wire (491-794) opened to sterile field. 11:03:06 SHEATH 6FR BERNARDO (2754960) opened to sterile field. 11:12:56 2) 60-89 Mildly reduced kidney function, and other findings (as for stage 1) point to kidney disease. 11:12:59 Maximum allowable contrast dose (3.7 X eGFR X 0.75)214 ml. 11:30:57 Physician arrived 11:30:58 --------ALL STOP TIME OUT------ 11:30:59 Final Timeout: patient, procedure, and site verified with staff and physician. All members of the team are in agreement. 11:31:08 Right Radial & Right Groin site verified by team. 11:31:12 Fire Safety Assessment: A--An alcohol-based skin anteseptic being used preoperatively., C--Open oxygen or nitrous oxide is being used., D--An ESU, laser, or fiber-optic light is being used. 11:31:17 Physical assessment completed. ASA score P 2 - A patient with mild systemic disease as per Phoenix Allen MD. 11:31:22 Sedation plan: IV Moderate Sedation Medication:Versed, Fentanyl 11:32:05 Versed 2 mg I.V. was administered by Clare James RN; for sedation; Verbal order read back and verified. 11:32:10 Fentanyl 50 mcg I.V. was administered by Clare James RN; for sedation; Verbal order read back and verified. 11:34:51 Procedure started. 11:35:04 Local anesthetic to right radial artery with Lidocaine 2% by Phoenix Allen MD.INITIAL ACCESS ONLY 11:36:40 A 6 Fr Short sheath was inserted into the Right Femoral artery 11:36:41 Versed 2 mg I.V. was administered by Clare James RN; for sedation; Verbal order read back and verified. 11:36:45 Fentanyl 50 mcg I.V. was administered by Clare James RN; for sedation; Verbal order read back and verified. 11:37:16 A DIAGNOSTIC [place] 110cm 5 Fr catheter (934066) was advanced over the wire and used for Procedure. 11:37:31 LV angiography performed. 11:37:36 LV gram done using RICKS 11:37:42 EF : 60 % 11:37:46 Injector settings: Ml/sec: 5, Volume: 15, 11:38:10 LCA angiography performed. 11:38:18 ACCDominant side:Left 11:39:15 RCA angiography performed. 11:39:19 Catheter exchanged over wire. 11:39:34 Use device set [facility] PCI 11:39:49 GUIDE 6FR EBU 3.0 SH catheter ([id number]) opened to sterile field. 11:39:50 [place] Verrata Plus pressure wire (98338A) opened to sterile field. 11:39:55 INFLATOR Merit BasixCompak (QT6278) opened to sterile field. 11:40:07 6 Fr EBU 3 SH guide catheter was inserted over the wire 11:40:57 GUIDE 6FR AR 2.0 SH catheter ([id number]) opened to sterile field. 11:41:28 FFR/IFR wire advanced. 11:44:19 Wire advanced across lesion. 11:44:38 mLAD lesion measured at 0.81 with IFR 11:45:39 Heparin Bolus 4000 units I.V. was administered by Clare James RN; for anticoagulation; verified with Dr. Allen Verbal order read back and verified. 11:45:54 Integrilin (Bolus 2mg/ml) 9.5 ml I.V. was administered by Clare James RN; for antiplatelet therapy; Verbal order read back and verified. 11:46:06 Integrilin (Bolus 2mg/ml) 0.5 ml wasted was administered by Clare James RN; for antiplatelet therapy; Verbal order read back and verified. 11:46:15 Plavix 600 mg P.O. was administered by Clare James RN; for antiplatelet therapy; Verbal order read back and verified. 11:46:43 Place stent Inflation Number: 1 A BRAYDON RX 3.0 x 22 stent ([id number]) was prepped and advanced across the Mid LAD 70. The stent was deployed at 15 FARHANA for 0:10 (min:sec) 0. 11:47:07 ACC Pre-intervention [place] Flow is 3. 11:47:16 Pre PCI Site: [place] mLAD has 70% stenosis. 11:47:21 Stent catheter was removed intact over wire. 11:47:22 Wire removed. 11:47:24 Guide catheter removed. 11:47:30 Post PCI Site: [place] mLAD has 0% stenosis. 11:47:32 ACC Post-intervention [place] Flow is 3. 11:47:43 6 Fr AR 2 SH guide catheter was inserted over the wire 11:50:33 FFR/IFR wire advanced. 11:51:28 ACT drawn and resulted at 202 seconds. (normal therapeutic range 180-240 seconds). 11:51:44 Wire advanced across lesion. 11:52:18 dRCA lesion measured at 0.91 with IFR 11:52:28 Wire removed. 11:52:29 Guide catheter removed. 11:52:47 ZEPHYR REGULAR TR BAND (170296) opened to sterile field. 11:53:21 Procedure ended.(Physican Out) 11:55:05 Sheath removed intact; hemostasis achieved with Mechanical Compression to the Right Femoral artery. 11:55:20 [place] band inflated with 12cc of air. 11:55:31 Fluoroscopy time 06.10 minutes. 11:55:36 Flurop Dose total: 420 11:55:36 Fluoroscopy dose: 420 mGy 11:55:43 Dose Area Product 2592.14 mGy/cm. 11:55:52 Contrast amount:Isovue 300 127ml. 11:55:54 Maximum allowable dose exceeded? No. 11:55:56 Sharps counted by scrub and verified by R.N. 11:55:57 Insertion/operative site no bleeding no hematoma. 11:56:02 Post Procedure Pulses reassessed and unchanged 11:56:04 Post-procedure physical assessment completed. ASA score P 2 - A patient with mild systemic disease as per Phoenix Allen MD. 11:56:06 Post procedure rhythm: unchanged. 11:56:08 Estimated blood loss: 10 ml 11:56:10 Post procedure instruction explained to patient.Patient verbalizes understanding. 11:56:11 Patient needs reinforcement of post procedure teaching. 11:57:09 Procedure type changed to Cath procedure, Diagnostic procedure, LHC, LHC w/Coronaries, FFR/IVUS, FFR Initial, FFR Additional, Sedation Charges, Moderate Sedation up to 15 minutes, PCI procedure, Coronary Stent, Coronary Stent Initial, Hemochron ACT Test 11:57:31 Procedure and supply charges have been captured, reviewed, submitted and are correct. 11:57:33 Procedure Complication : No complications 11:57:36 Vital chart was stopped 11:57:40 [facility] Findings: MVD- PCI performed (see procedure note) 11:57:42 Operative report dictated upon procedure completion. 11:57:42 See physician's report for complete and final results. 11:57:45 Report given to Pre/Post Procedure Room. 11:57:47 Patient transfered to Pre/Post Procedure Room with Stretcher. 11:57:49 Procedure ended. 11:57:49 Full Disclosure recording stopped 11:58:34 End room use (Document Last) 11:58:44 End room use (Document Last) 11:59:36 End room use (Document Last) Intervention Summary Intervention Notes Time ActionType Lesion and Equipment Used Action# Pressure Duration Attributes 11:46:43 Place stent Mid LAD BRAYDON RX 3.0 x 1 15 00:10 22 stent ([id number]) Device Usage Item Name Manufacture Quantity Catalog Hospital Part Current Minimal Lot# / Number Charge Number Stock Stock Serial# Code Tegaderm 4 x 4 3M 1 1626W [id number] 142941 413803 5 (1626W) ACIST Manifold Acist 1 78493 793175 342692 965687 5 (96335) Medical Systems Inc Bag Decanter Microtek 1 2002S 060130 29538 372658 5 (2002S) Medical Inc. ACIST Hand Acist 1 27537 634115 453632 801455 5 Control Medical (53176) Systems Inc Medline Cath Medline 1 [id number] 601156 53393 449371 5 Pack ([id number]) ACIST Syringe Acist 1 74558 540156 876412 013572 20 (89978) Medical Systems Inc MBrace Wrist Advanced 1 140-0250-00 018844 95715 844046 5 Support Vascular ([id number]) Dynamics EMERALD Guide Cardinal 1 502-455 288088 170790 791667 5 Wire (502-455) Health SHEATH 6FR Cardinal 1 3363798 274205 1526261 213631 5 RAIN (8025768) Health DIAGNOSTIC Terumo 1 40-2427 943267 251319 624052 5 [place] 110cm 5 Fr catheter (325975) GUIDE 6FR EBU Medtronic 1 [id number] 602460 79354 781610 0 3.0 SH catheter ([id number]) Milton Milton 1 01268J 547464 997880876 930096 5 Verrata Plus pressure wire (83973Z) INFLATOR Merit Merit 1 RA2785 244396 078823 218216 15 Buedade[employer]Katy Medical (OC0883) GUIDE 6FR AR Medtronic 1 [id number] 972621 60377 537163 1 2.0 SH catheter ([id number]) BRAYDON RX 3.0 x Medtronic 1 [id number] 741294 6141468 135272 5 [id number] 22 stent ([id number]) ZEPHYR REGULAR Cardinal 1 682086 149949 8654200 244542 5 [facility] ConXtech (047887) Signature Audit [place] Stage Time Signature Unsigned Intra-Procedure 02/26/2019 Kwame Saavedra 11:58:44 AM RT(R) Intra-Procedure 02/26/2019 Clare James 11:59:36 AM RN Intra-Procedure 02/26/2019 Phoenix Allen 11:59:59 AM [id number] [place] [address]
[~2019-02-26 07:55] MED LIST changes: +FISH OIL 1,0001 CA1 PO; +GLUCOSAMINE HC500 MG PO; +VITAMIN D31000 UNIT PO
[2019-02-26 08:25] LABS: BASOPHILS 0.6 % (0-2); EOSINOPHILS 2.3 % (0-7); HEMATOCRIT 47.2 % (42.0-54.0); IMMATURE GRANULOCYTES 0.3 % (0-5); LYMPHOCYTES 18.3 % (15-50); MCH 30.8 pg (26.0-34.0); MCHC 33.9 g/dL (31.0-37.0); MCV 90.9 fL (80.0-100.0); MEAN PLATELET VOLUME 9.7 fL (7.4-10.4); MONOCYTES 6.6 % (2-11); NEUTROPHILS 71.9 % (40-80); PLATELET COUNT 224 10x3/uL (130-400); RBC 5.19 10x6/uL (4.20-6.10); RDW 13.7 % (11.5-14.5); WBC 6.6 10x3/uL (4.8-10.8)
[2019-02-26 08:27] LABS: CALC OSMOLALITY 282 mosm/kg (275-300); CALCIUM 8.5 mg/dL (8.5-10.1); CHLORIDE - SERUM 106 mmol/L (98-107); GLUCOSE 125 mg/dL (74-106); POTASSIUM - SERUM 4.1 mmol/L (3.5-5.1); SODIUM 142 mmol/L (136-145); UREA NITROGEN 11 mg/dL (7-18); eGFR NON AFRICAN AMERICAN 77 mL/min (90-120)
[2019-02-26 08:42] LABS: ALBUMIN 3.5 g/dL (3.4-5.0); ALKALINE PHOSPHATASE 70 U/L (46-116); ALT (SGPT) 41 U/L (10-68); BILIRUBIN - TOTAL 0.98 mg/dL (0.2-1.3); CKMB 0.7 U/L (0.0-3.6); CREATINE KINASE 40 UL (21-232); MAGNESIUM - SERUM 1.9 mg/dL (1.8-2.4); PROTEIN - SERUM 6.5 g/dL (6.4-8.2); TROPONIN-I < 0.017 ng/mL (0.000-0.060)
[2019-02-26 08:44] LABS: APTT 22.9 SECONDS (22.8-39.4); INR 1.09 (0.85-1.17); PROTIME 13.6 SECONDS (11.6-15.0)
--- NOTE | 2019-02-26 11:20 | NUR ---
PT TAKEN TO RENEWABLE [employer]ERGY DIVISION MANAGER AT 1120 - TRANSFER OF CARE TO DANG RUDD
--- NOTE | 2019-02-26 12:10 | NUR ---
PATIENT ARRIVED TO ROOM 9, PLACED ON CM. VSS ON 2L NC. RIGHT RADIAL Z BAND WITH WRIST IMMOBILIZER IN PLACE, NO S/S OF BLEEDING OR HEMATOMA.
--- NOTE | 2019-02-26 12:25 | NUR ---
PATIENT AWAKE, SITTING UP IN BED. VSS ON ROOM AIR. RIGHT Z BAND IN PLACE, NO S/S OF BLEEDING OR HEMATOMA. NO C/O PAIN, NUMBNESS, OR TINGLING. SPOUSE PRESENT AT BEDSIDE.
--- NOTE | 2019-02-26 12:55 | NUR ---
SPOKE WITH PHYSICIAN REGARDING CONTINUED SMALL AMOUNT OF BLEEDING FROM URETHRA. PATIENT STATES THAT HE "WANTS TO SEE IF I CAN GO SEE MY UROLOGIST" AT ANOTHER FACILITY. WILL SPEAK WITH PATIENT AND SPOUSE IN ORDER TO REACH DECISION. VSS ON ROOM AIR. RIGHT Z BAND IN PLACE, NO S/S OF BLEEDING OR HEMATOMA. NO C/O PAIN, NUMBNESS, OR TINGLING. TOLERATING PO FLUIDS, NO N/V.
--- NOTE | 2019-02-26 13:25 | NUR ---
PATIENT AND SPOUSE HAVE SPOKEN WITH UROLOGIST AT OTHER FACILITY AND WISH FOR THE PATIENT TO BE ADMITTED AT [facility] FOR FURTHER EVALUATION. PHYSICIAN CONTACTED AND UPDATED, ORDERS RECEIVED FOR ADMISSION AND UROLOGY CONSULT. VSS ON ROOM AIR. RIGHT Z BAND IN PLACE, NO S/S OF BLEEDING OR HEMATOMA. SMALL AMOUNT OF BLEEDING CONTINUES FROM URETHRA.
--- NOTE | 2019-02-26 13:55 | NUR ---
PATIENT INTERMITTENTLY RESTING, VSS ON ROOM AIR. RIGHT Z BAND IN PLACE, NO S/S OF BLEEDING OR HEMATOMA. NO N/V. SMALL AMOUNT OF CHICHI RED BLOOD CONTINUES FROM URETHRA. WILL CONTINUE TO MONITOR.
--- NOTE | 2019-02-26 14:25 | NUR ---
VSS ON ROOM AIR. RIGHT Z BAND IN PLACE, NO S/S OF BLEEDING OR HEMATOMA. PATIENT CONTINUES TO HAVE SMALL AMOUNTS OF CHICHI BLEEDING FROM URETHRA. NO C/O PAIN, NUMBNESS, OR TINGLING. WILL CONTINUE TO MONITOR.
--- NOTE | 2019-02-26 14:45 | NUR ---
REPORT CALLED TO ED LEONG, ALL QUESTIONS ANSWERED. VSS ON ROOM AIR. RIGHT RADIAL SITE WITH Z BAND IN PLACE SHOWS NO S/S OF BLEEDING OR HEMATOMA. NO C/O PAIN, NUMBNESS, OR TINGLING. SPOUSE PRESENT AT BEDSIDE.
--- NOTE | 2019-02-26 15:30 | NUR ---
PATIENT TRANSPORTED TO ROOM 2119 VIA STRETCHER. PATIENT VOIDED X1 BEFORE TRANSFER, HEMATURIA WITH ONE CLOT NOTED. RIGHT RADIAL SITE IS CDI,NO S/S OF BLEEDING OR HEMTOMA. NO C/O PAIN, NUMBNESS,OR TINGLING. ED LEONG NOTIFIED OF PATIENT ARRIVAL AND AT PATIENT BEDSIDE.
[2019-02-26] MEDS ORDERED: COZAAR50 MG PO (16:24)
[2019-02-26] MEDS ORDERED: HYDROCHLOROTH12.5 M1 PO (16:25)
--- NOTE | 2019-02-26 16:38 | NUR ---
recieved from cvicu. alert and oriented. IV TO RIGHT FA. ZYPHER BAND TO RIGHT WRIST, NO BLEEDING NOTED.TELEMERTY SHOWS SR. PT HAS A SMALL AMT OF BLLD FROM PENIS. DR HERNÁNDEZ HERE TO SEE PT. NO NEEDS VOICED. WILL MONITOR
[2019-02-26 20:41] VITALS: BP 114/68
[2019-02-27 00:35] VITALS: BP 116/73
[2019-02-27 01:35] VITALS: Ht 182.9 cm; Wt 102.6 kg
[2019-02-27 04:00] VITALS: BP 148/70
--- NOTE | 2019-02-27 07:15 | NUR ---
ASSESSMENT DONE. DENIES NEEDS
--- NOTE | 2019-02-27 09:38 | NUR ---
TO OR PER BED
--- NOTE | 2019-02-27 10:00 | NUR ---
PT CAME TO HOLDING AREA WITH GOLD WEDDING BAND ON. WEDDING RING REMOVED AND TAKEN TO PT IN SURGERY WAITING ROOM. IT WAS PLACED IN A STERILE SPECIMEN CUP AND LABELED WITH 2 PATIENT STICKERS.
[2019-02-27 11:01] VITALS: BP 118/68
[2019-02-27 11:05] VITALS: BP 114/62
--- NOTE | 2019-02-27 11:07 | NUR ---
RETURN FROM OR PER BED
--- NOTE | 2019-02-27 11:20 | NUR ---
I have reviewed this patient and I concur with the Shift Assessment completed by the Licensed Practical Nurse today this shift.
[2019-02-27 11:51] LABS: CALC OSMOLALITY 281 mosm/kg (275-300); CALCIUM 8.1 mg/dL (8.5-10.1); CARBON DIOXIDE 27.3 mmol/L (21.0-32.0); CHLORIDE - SERUM 105 mmol/L (98-107); CREATININE - SERUM 0.9 mg/dL (0.6-1.3); GLUCOSE 105 mg/dL (74-106); POTASSIUM - SERUM 3.7 mmol/L (3.5-5.1); SODIUM 142 mmol/L (136-145); UREA NITROGEN 10 mg/dL (7-18); eGFR NON AFRICAN AMERICAN 87 mL/min (90-120)
--- NOTE | 2019-02-27 12:54 | OP ---
PATIENT NAME: MALLORY YOUSIF MEDICAL RECORD: [id number] :44 LOCATION:D.M2 D.2119 ADMISSION DATE:02/26/19 SURGEON: GIO HERNÁNDEZ MD DATE OF OPERATION: 02/27/2019 SURGEON: Gio Hernández MD ANESTHESIA: General anesthesia by Jose Flores. DIAGNOSES: Zofia hematuria, obstructive benign prostatic hypertrophy. PROCEDURE: Cystoscopy. FINDINGS: No urethral strictures. Vascular, obstructive lateral lobes of the prostate. No median lobe. Single ureteral orifices bilaterally with no bladder tumors seen. Trabeculated bladder. ESTIMATED BLOOD LOSS: None. CLINICAL HISTORY: This is a 78-year-old male, who was admitted to the hospital with acute chest pain. He had coronary angiography and he had a coronary artery stent placed by Dr. Allen. This will be his fifth coronary artery stent. He has been started on anticoagulation with Plavix. He then developed zofia hematuria. He did not wish to go home without having this investigated. The hematuria has spontaneously cleared up. However, I will perform cystoscopy to check the bladder and his prostate. He does have obstructive voiding symptoms. Of greater concern to the patient and his is that his brother of metastatic bladder cancer. He will be having a CT scan of the abdomen and pelvis later today to check the upper tracts. We will also send urine for cytology. He was given Ancef instrumentation and controls technician to the OR. DESCRIPTION OF PROCEDURE: The patient was given induction of general anesthesia. He was then placed into the lithotomy position. The 21-[place] cystoscope with 30-degree lens was used for visualization. Findings are as outlined above. No active bleeding was seen. The bladder was emptied through the scope and then the scope was removed. TRANSINT:[id number] Voice Confirmation ID: [id number] DOCUMENT ID: [id number] GIO HERNÁNDEZ MD at 1254 CC: [id number] DICTATION DATE: 02/27/19 1026 CENTRAL SUPPLY ASSISTANT: 02/27/19 1243 [facility] [address] [place] [address]
[2019-02-27] MEDS ORDERED: PLAVIX75 MG PO (16:09)
[2019-02-27] MEDS ORDERED: COZAAR50 MG PO (16:09)
--- NOTE | 2019-02-27 17:19 | NUR ---
DC GIVEN TO PT AND
--- NOTE | 2019-02-27 17:48 | NUR ---
DC HOME PER PERSONAL CAR
--- NOTE | 2019-02-28 09:22 | MORECARE ---
CASE MANAGEMENT DISCHARGE SUMMARY PATIENT: MALLORY YOUSIF UNIT: [id number] ADM DATE: 02/26/19 AGE: 78 : 44 SEX: M ROOM/BED: D.2119 AUTHOR: LIZZY JOHNSTON PHYSICIAN: REFERRING PHYSICIAN: KENNEY SIM MD DATE OF SERVICE: 02/28/19 Discharge Plan Patient Name: MALLORY YOUSIF [facility] [facility] 1940 Planned Disposition: Home Anticipated Discharge Date: 02/27/19 Discharge Date: 02/27/2019 Expected LOS: 1 Initial Reviewer: [id number] Initial Review Date: 02/28/2019 Generated: 02/28/19 10:21 am Coverage Notice Reviewer: [id number] Tonny Arias Notice Issued Date-Time: 02/26/2019 10:25 Notice Type: Medicare Outpatient Observation Notice Notice Delivered To: Patient 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 Signed form also left with patient. Lyndsey Arias RN , [facility] Patient Name: MALLORY YOUSIF Page [phone] at 0922 All edits/amendments must be made on the electronic document DICTATION DATE: 02/28/19920 NOTE SPECIALIST: THEODORE 02/28/19920 RPT#: [id number] DC DATE:02/27/19 STATUS: DIS IN [facility] [address] [place] [address] END OF REPORT
== END 2019-02-27 17:48 | disposition home or self-care (01) | DRG 247 ==
LOC: D.M2 07:55 → D.CATH 07:55 → D.ER 07:55 → EDSTATUS 13:34 → D.M2 15:48 → D.CATH 15:49 → D.M2 02-27 17:48
PROVIDERS: Family Medicine; ADMIT Internal Medicine Interventional Cardiology; ATTEND Internal Medicine Interventional Cardiology
PROC: B2111ZZ Fluoroscopy of Multiple Coronary Arteries using Low Osmolar Contrast (ICD-10-PCS; 2019-02-26)
PROC: B2151ZZ Fluoroscopy of Left Heart using Low Osmolar Contrast (ICD-10-PCS; 2019-02-26)
PROC: 4A033BC Measurement of Arterial Pressure, Coronary, Percutaneous Approach (ICD-10-PCS; 2019-02-26)
PROC: 027034Z Dilation of Coronary Artery, One Artery with Drug-eluting Intraluminal Device, Percutaneous Approach (ICD-10-PCS; principal; 2019-02-26 10:30)
PROC: 4A023N7 Measurement of Cardiac Sampling and Pressure, Left Heart, Percutaneous Approach (ICD-10-PCS; 2019-02-26 10:30)
PROC: 0TJB8ZZ Inspection of Bladder, Via Natural or Artificial Opening Endoscopic (ICD-10-PCS; 2019-02-27)
DX: I25.110 Atherosclerotic heart disease of native coronary artery with unstable angina pectoris (principal); N13.8 Other obstructive and reflux uropathy; I10 Essential (primary) hypertension; E78.5 Hyperlipidemia, unspecified; R31.9 Hematuria, unspecified; N40.1 Benign prostatic hyperplasia with lower urinary tract symptoms; K59.00 Constipation, unspecified

== ENCOUNTER 2019-03-02 08:29 | Emergency (ER) | payer MEDICARE, BC ==
[~2019-03-02] VITALS: Ht 182.9 cm; Wt 100.0 kg
[~2019-03-02 08:29] MED LIST changes: +COZAAR50 MG PO; +HYDROCHLOROTH12.5 M1 PO
[2019-03-02 08:32] VITALS: Ht 182.9 cm; Wt 100.0 kg
[2019-03-02 08:54] LABS: BASOPHILS 0.5 % (0-2); EOSINOPHILS 3.3 % (0-7); HEMATOCRIT 45.9 % (42.0-54.0); HEMOGLOBIN 15.7 g/dL (13.5-17.5); IMMATURE GRANULOCYTES 0.2 % (0-5); LYMPHOCYTES 17.7 % (15-50); MCH 30.9 pg (26.0-34.0); MCHC 34.2 g/dL (31.0-37.0); MCV 90.4 fL (80.0-100.0); MEAN PLATELET VOLUME 9.3 fL (7.4-10.4); MONOCYTES 9.5 % (2-11); NEUTROPHILS 68.8 % (40-80); PLATELET COUNT 223 10x3/uL (130-400); RBC 5.08 10x6/uL (4.20-6.10); RDW 13.5 % (11.5-14.5); WBC 6.3 10x3/uL (4.8-10.8)
[2019-03-02] MEDS ORDERED: NORVASC5 MG PO (08:58)
[2019-03-02 09:00] LABS: APTT 23.7 SECONDS (22.8-39.4); INR 1.01 (0.85-1.17); PROTIME 13.2 SECONDS (11.6-15.0)
[2019-03-02 09:04] LABS: CALC OSMOLALITY 284 mosm/kg (275-300); CALCIUM 8.9 mg/dL (8.5-10.1); CARBON DIOXIDE 32.2 mmol/L (21.0-32.0); CHLORIDE - SERUM 105 mmol/L (98-107); CREATININE - SERUM 0.9 mg/dL (0.6-1.3); GLUCOSE 128 mg/dL (74-106); POTASSIUM - SERUM 4.1 mmol/L (3.5-5.1); SODIUM 142 mmol/L (136-145); UREA NITROGEN 13 mg/dL (7-18); eGFR NON AFRICAN AMERICAN 87 mL/min (90-120)
[2019-03-02 09:20] LABS: ALBUMIN 3.5 g/dL (3.4-5.0); ALKALINE PHOSPHATASE 74 U/L (46-116); ALT (SGPT) 41 U/L (10-68); BILIRUBIN - TOTAL 0.99 mg/dL (0.2-1.3); CKMB 0.7 U/L (0.0-3.6); CREATINE KINASE 53 UL (21-232); MAGNESIUM - SERUM 2.1 mg/dL (1.8-2.4)
[2019-03-02 09:21] LABS: TROPONIN-I < 0.017 ng/mL (0.000-0.060)
[2019-03-02 10:08] VITALS: BP 122/69
== END 2019-03-02 10:16 | disposition home or self-care (01) ==
LOC: D.ER 08:29
PROVIDERS: Family Medicine
DX: R51 Headache (principal); I10 Essential (primary) hypertension; I25.10 Atherosclerotic heart disease of native coronary artery without angina pectoris; Z95.0 Presence of cardiac pacemaker

== ENCOUNTER → 2019-03-07 21:00 | Outpatient (CLI) | payer MEDICARE, BC ==
[2019-03-02 08:32] VITALS: BMI 29.9
[~2019-03-07 21:00] MED LIST changes: +NORVASC5 MG PO
== END | disposition home or self-care (01) ==
LOC: D.LABREF 21:00
PROVIDERS: ATTEND Urology
DX: R31.9 Hematuria, unspecified (principal)